=== PATIENT | female | born 1970 | race African-American/Black ===

== ENCOUNTER 2017-01-14 11:41 | Emergency (ER) | payer OTHER ==
[~2017-01-14] VITALS: Ht 162.6 cm; Wt 77.0 kg
[~2017-01-14 11:41] MED LIST: BACTRIM DS1 TAB PO; DILANTIN100 MG PO; FLEXERIL PO; KEFLEX500 MG PO; LORTAB 7.57.5 MG PO; NORVASC PO; ULTRAM50 M1 PO
[2017-01-14] MEDS ORDERED: MOTRIN800 MG PO (14:40)
[2017-01-14] MEDS ORDERED: TRAMADOL HYDROC50 MG PO (14:40)
[2017-01-14] MEDS ORDERED: FLEXERIL PO (14:40)
[2017-01-14 14:58] VITALS: BP 171/88
== END 2017-01-14 15:13 | disposition home or self-care (01) | DRG 552 ==
LOC: ED 11:41
DX: S16.1XXA Strain of muscle, fascia and tendon at neck level, initial encounter (principal); S09.90XA Unspecified injury of head, initial encounter; V49.40XA Driver injured in collision with unspecified motor vehicles in traffic accident, initial encounter

== ENCOUNTER 2017-03-27 12:27 | Emergency (ER) | payer SELFPAY ==
[~2017-03-27] VITALS: Ht 162.6 cm; Wt 80.6 kg
[~2017-03-27 12:27] MED LIST changes: +MOTRIN800 MG PO; +TRAMADOL HYDROC50 MG PO
[2017-03-27] MEDS ORDERED: MOTRIN800 MG PO (12:55)
[2017-03-27] MEDS ORDERED: TRAMADOL HYDROC50 MG PO (12:55)
[2017-03-27 13:23] VITALS: BP 146/93
== END 2017-03-27 13:30 | disposition home or self-care (01) | DRG 563 ==
LOC: ED 12:27
DX: S83.242A Other tear of medial meniscus, current injury, left knee, initial encounter (principal); X58.XXXA Exposure to other specified factors, initial encounter; Y92.009 Unspecified place in unspecified non-institutional (private) residence as the place of occurrence of the external cause

== ENCOUNTER 2017-06-19 12:46 | Emergency (ER) | payer SELFPAY ==
[~2017-06-19] VITALS: Ht 162.6 cm; Wt 100.0 kg
[2017-06-19] MEDS ORDERED: BACTRIM DS1 TAB PO (13:17)
[2017-06-19] MEDS ORDERED: CEPHALEXIN500 M1 PO (13:17)
[2017-06-19 13:26] VITALS: BP 141/67
== END 2017-06-19 13:30 | disposition home or self-care (01) | DRG 761 ==
LOC: ED 12:46
DX: N75.0 Cyst of Bartholin's gland (principal)

== ENCOUNTER 2020-11-24 11:09 | Emergency (ER) | payer SELFPAY ==
[~2020-11-24] VITALS: Ht 162.6 cm; Wt 90.9 kg
[~2020-11-24 11:09] MED LIST changes: +CEPHALEXIN500 M1 PO
[2020-11-24] MEDS ORDERED: NORVASC5 M1 PO (11:38)
[2020-11-24] MEDS ORDERED: CLEOCIN300 MG PO (11:39)
[2020-11-24] MEDS ORDERED: HYDROCO/APAP1 TA9 PO (11:39)
[2020-11-24 12:24] VITALS: BP 131/83
== END 2020-11-24 12:24 | disposition home or self-care (01) | DRG 159 ==
LOC: ED 11:09
DX: K08.89 Other specified disorders of teeth and supporting structures (principal)

== ENCOUNTER 2021-04-25 16:35 | Emergency (ER) | payer SELFPAY ==
[~2021-04-25] VITALS: Ht 162.6 cm; Wt 72.0 kg
[~2021-04-25 16:35] MED LIST changes: +CLEOCIN300 MG PO; +HYDROCO/APAP1 TA9 PO; +NORVASC5 M1 PO
[2021-04-25 18:48] LABS: URINE BILIRUBIN - DIPSTICK NEGATIVE (NEGATIVE); URINE BLOOD DIPSTICK NEGATIVE (NEGATIVE); URINE COLOR YELLOW; URINE GLUCOSE - DIPSTICK NEGATIVE (NEGATIVE); URINE KETONE NEGATIVE (NEGATIVE); URINE LEUK ESTERASE NEGATIVE (NEGATIVE); URINE PROTEIN - DIPSTICK NEGATIVE (NEG-TRACE); URINE SPECIFIC GRAVITY >=1.030; URINE UROBILINOGEN - DIPSTICK 0.2 E.U./dL (0.2)
[2021-04-25 18:49] LABS: URINE NITRITE - DIPSTICK NEGATIVE (Negative)
[2021-04-25] MEDS ORDERED: ULTRAM50 MG PO (19:31)
[2021-04-25] MEDS ORDERED: FLEXERIL5 M1 PO (19:31)
[2021-04-25 20:00] VITALS: BP 160/92
== END 2021-04-25 20:05 | disposition home or self-care (01) | DRG 563 ==
LOC: ED 16:35
PROVIDERS: Family Medicine
DX: S39.012A Strain of muscle, fascia and tendon of lower back, initial encounter (principal); I10 Essential (primary) hypertension; X50.0XXA Overexertion from strenuous movement or load, initial encounter; Y93.89 Activity, other specified; Y92.007 Garden or yard of unspecified non-institutional (private) residence as the place of occurrence of the external cause

== ENCOUNTER 2021-10-17 20:07 | Emergency (ER) | payer SELFPAY ==
[~2021-10-17] VITALS: Ht 162.6 cm; Wt 77.0 kg
[~2021-10-17 20:07] MED LIST changes: +FLEXERIL5 M1 PO; +ULTRAM50 MG PO
[2021-10-17 22:31] VITALS: BP 193/92
[2021-10-17] MEDS ORDERED: CLEOCIN300 MG PO (22:44)
[2021-10-17] MEDS ORDERED: ULTRAM50 MG PO (22:44)
[2021-10-17 22:45] VITALS: BP 187/94
[2021-10-17 23:00] VITALS: BP 187/94
== END 2021-10-17 23:05 | disposition home or self-care (01) | DRG 159 ==
LOC: ED 20:07
DX: K04.7 Periapical abscess without sinus (principal); I10 Essential (primary) hypertension

== ENCOUNTER 2022-01-12 10:28 | Emergency (ER) | payer SELFPAY ==
[2022-01-12] VITALS (10 sets, daily range): BP systolic 127–155; BP diastolic 71–105
[~2022-01-12] VITALS: Ht 162.6 cm; Wt 84.5 kg
[2022-01-12 11:02] LABS: HEMATOCRIT 34.3 % (37.0-47.0); HEMOGLOBIN 11.4 g/dl (12.0-16.0); IMMATURE GRANULOCYTES 0.2 % (0.0-5.0); MEAN CELL VOLUME 93.2 fL CALC (80.0-100.0); MEAN CORPUSCULAR HGB CONC 33.2 g/dL CAL (32.0-36.0); NEUT# 1.97 thou/uL (2.00-7.15); RED BLOOD COUNT 3.68 mill/uL (4.20-5.60); RED CELL DISTRI WIDTH 13.5 % (11.5-15.5)
[2022-01-12 11:20] LABS: ALBUMIN 4.3 g/dL (3.2-5.0); ALKALINE PHOSPHATASE 99 u/l (38-126); ANION GAP 13 (6-22 (CALC)); BILIRUBIN, TOTAL 0.4 mg/dL (0.0-1.4); BUN 15 mg/dL (7-17); BUN/CREATININE RATIO 16 (12-20 (CALC)); CARBON DIOXIDE 26 mmol/l (22-30); CHLORIDE 107 mmol/l (95-108); GFR FOR AFR.AMER. > 60 ML/MIN (>=60 (CALC)); GFR OTHER RACES 58 ML/MIN (>=60 (CALC)); POTASSIUM 3.9 mmol/l (3.5-5.1); SGOT/AST 27 u/l (14-36); SODIUM 143 mmol/l (137-146); TOTAL PROTEIN 8.1 g/dL (6.3-8.2)
== END 2022-01-12 17:42 | disposition home or self-care (01) | DRG 179 ==
LOC: ED 10:28
PROVIDERS: Family Medicine
DX: U07.1 COVID-19 (principal); R53.83 Other fatigue; R10.32 Left lower quadrant pain; M25.512 Pain in left shoulder; I10 Essential (primary) hypertension; Z87.891 Personal history of nicotine dependence
CPT/HCPCS: Q9967